=== PATIENT | female | born 1975 | race Caucasian/White ===

== ENCOUNTER 2016-08-29 16:55 | Emergency (ER) | payer MEDICARE ==
[~2016-08-29] VITALS: Ht 157.4 cm; Wt 77.1 kg
[~2016-08-29 16:55] MED LIST: ANTIVERT/2525 MG PO; BACLOFEN10 MG PO; BACTRIM DS 8001 TA1 PO; CHANTIX START M1 TAB PO; CIPROFLOXACIN500 MG PO; CLARITIN10 MG PO; CYCLOBENZAPRINE5 M3 PO; DETROL LA4 MG PO; FLONASE ALLERG9.9 ML NAS; GABAPENTIN600 MG PO; HYDROCODONE BIT1 T11 PO; KEFLEX500 MG PO; LITHIUM CARBON150 MG PO; LYRICA100 M1 PO; MEDROL DOSEPAK4 MG PO; METHOTREXATE S2.5 M1 PO; MIRALAX POWDER17 G1 PO; MOTRIN800 MG PO; OXCARBAZEPINE600 MG PO; PERCOCET 325 MG1 TA2 PO; PREDNISONE10 MG PO; ROBITUSSIN AC 110 ML PO; TRAZODONE100 MG PO; TYLENOL W/CODEI1 TA2 PO; TYSABRI20 MG/ML IV; ULTRAM50 MG PO; VENTOLIN H0.09 MG/AC INH; XANAX0.25 MG PO; ZITHROMAX Z PA250 MG PO; ZOFRAN4 MG PO; ZOLOFT100 MG PO
[2016-08-29] MEDS ORDERED: CEPHALEXIN500 M1 PO (17:32)
[2016-08-29] MEDS ORDERED: BACTRIM DS 8001 TA1 PO (17:32)
== END 2016-08-29 17:40 | disposition home or self-care (01) ==
LOC: ED 16:55
DX: S80.262A Insect bite (nonvenomous), left knee, initial encounter (principal); F17.200 Nicotine dependence, unspecified, uncomplicated; Z79.899 Other long term (current) drug therapy; W57.XXXA Bitten or stung by nonvenomous insect and other nonvenomous arthropods, initial encounter; Y93.89 Activity, other specified; Y92.9 Unspecified place or not applicable; Y99.9 Unspecified external cause status

== ENCOUNTER → 2016-08-31 | Outpatient (CLI) | payer MEDICARE ==
[~2016-08-31] MED LIST changes: +CEPHALEXIN500 M1 PO
== END ==
LOC: WOUNDCARE 07:51
DX: L97.822 Non-pressure chronic ulcer of other part of left lower leg with fat layer exposed (principal); F17.210 Nicotine dependence, cigarettes, uncomplicated

== ENCOUNTER → 2016-09-07 | Outpatient (CLI) | payer MEDICARE | LOC: WOUNDCARE 04:15 | DX: L97.822 Non-pressure chronic ulcer of other part of left lower leg with fat layer exposed (principal); F17.200 Nicotine dependence, unspecified, uncomplicated; G35 Multiple sclerosis ==

== ENCOUNTER → 2016-09-14 | Outpatient (CLI) | payer MEDICARE | END | disposition home or self-care (01) | LOC: US 13:38 | DX: S81.802A Unspecified open wound, left lower leg, initial encounter (principal); I73.9 Peripheral vascular disease, unspecified; L97.829 Non-pressure chronic ulcer of other part of left lower leg with unspecified severity; X58.XXXA Exposure to other specified factors, initial encounter; Y93.89 Activity, other specified; Y92.89 Other specified places as the place of occurrence of the external cause; Y99.8 Other external cause status ==

== ENCOUNTER → 2016-09-21 | Outpatient (CLI) | payer MEDICARE ==
--- NOTE | ~2016-09-21 | PR ---
[place], [place] PROGRESS NOTE NAME: [facility] #: [id number] UNIT #: [id number] ROOM: DOCTOR: KAMRYN WRIGHT M.D. BIRTHDATE: [birth year] DOS: 09/21/2016 CHIEF COMPLAINT: Followup of chronic ulcer of the left leg. HISTORY OF PRESENT ILLNESS: The patient is a 40-year-old female with a history of MS who has been following up in the [facility]ound Clinic for 3 weeks now. She presented to us with a nonhealing ulcer of several weeks' duration which she believes started out as an insect bite. It subsequently became necrotic and she came to us with a very thick necrotic ulcer of the left leg. We have been using TheraHoney and Bactroban to the wound. She has had a debridement and she comes in for followup without any specific complaints. There is no change in drainage. No fevers or chills. She has noticed discoloration on the proximal area of the wound which is slightly sore and is not sure how it happened. She may have fallen but does not really recall directly falling on the wound. OBJECTIVE: VITAL SIGNS: Stable. Temperature is 98.2, pulse is 68, respirations 16 and blood pressure is 118/64. SKIN: The wound is measuring 2.8 x 1 x 0.1. It looks much improved. There is good granulation tissue and there is definite epithelialization noted as well. There is still some moderate fibrin and slough present mostly in the central part of the wound. On the proximal portion, there is a discoloration that has a consistency with more of a bruise or some sort of bleeding from possibly some trauma but it does not appear to be infected. A selective debridement was done of the fibrin and slough only. There was minimal bleeding that was controlled with pressure. Post-debridement measurements are unchanged. Instrument utilized was a curette and Cetacaine spray was used for topical anesthesia. ASSESSMENT AND PLAN: Slowly healing ulcer of the left leg. It seems to be definitely improving and getting smaller on the current regimen. I would continue with TheraHoney for now and have her followup in one week. KAMRYN WRIGHT MD CM:PNTRANS [id number] KAMRYN WRIGHT M.D. 09/21/16 1448 interface
== END ==
LOC: WOUNDCARE 02:28
DX: L97.822 Non-pressure chronic ulcer of other part of left lower leg with fat layer exposed (principal)

== ENCOUNTER → 2016-09-28 | Outpatient (CLI) | payer MEDICARE ==
--- NOTE | ~2016-09-28 | PR ---
[place], [place] PROGRESS NOTE NAME: [facility] #: [id number] UNIT #: [id number] ROOM: DOCTOR: KAMRYN WRIGHT M.D. BIRTHDATE: [birth year] DOS: 09/28/2016 CHIEF COMPLAINT: Chronic ulcer of the left leg. HISTORY OF PRESENT ILLNESS: This is a 40-year-old female with a history of MS who has had a chronic ulcer of the left lower leg located below the knee that started out as a possible insect bite that was chronic and nonhealing with large amounts of necrosis. She has been coming to the Wound Clinic for 4 weeks now with steadily improving wound. She had been using Santyl and a foam dressing and feels that it was a different type of a foam being utilized now that she thought maybe was irritating the outer part of the wound, but other than that the wound is doing better and seems to be getting smaller without any other complaints noted. PHYSICAL EXAMINATION: VITAL SIGNS: Temperature is 99.1, pulse is 64, respirations 18 and blood pressure is 98/60. SKIN: The wound is definitely looking better, 2.5 x 0.5 x 0.1. There is still minimal to moderate fibrin and slough just in the center of the wound. There is large amounts of epithelialization around the periwound. There is a little bit of slight dermatitis around the periwound but it is fairly mild at this point. A selective debridement was done to remove the fibrin and slough. Instrument utilized was a curette. Cetacaine spray was used for topical anesthesia. Timeout was conducted prior to start of the procedure. There was minimal bleeding that was controlled with pressure. Post-debridement measurements were unchanged. ASSESSMENT AND PLAN: Healing chronic ulcer of the left leg. The patient is out of Santyl, we will go ahead switch to TheraHoney for now and have her utilize just a dry sterile 4 x 4 with nonallergic paper tape, have her change it every day and have her follow back up with us in 1 week. KAMRYN WRIGHT MD CM:PNPAULIE [id number] KAMRYN WRIGHT M.D. 09/28/16 1424 interface
== END | disposition home or self-care (01) ==
LOC: WOUNDCARE 03:21
DX: L97.822 Non-pressure chronic ulcer of other part of left lower leg with fat layer exposed (principal); G35 Multiple sclerosis

== ENCOUNTER 2017-11-14 23:07 | Emergency (ER) | payer MEDICARE ==
[~2017-11-14] VITALS: Ht 157.4 cm; Wt 68.0 kg
[2017-11-15] MEDS ORDERED: MEDROL DOSEPAK4 MG PO (00:40)
[2017-11-15] MEDS ORDERED: AUGMENTIN 875875 MG PO (00:40)
[2017-11-15] MEDS ORDERED: PROAIR HFA8.5 GM INH (00:40)
== END 2017-11-15 00:55 | disposition home or self-care (01) ==
LOC: ED 23:07
DX: J20.9 Acute bronchitis, unspecified (principal); H66.93 Otitis media, unspecified, bilateral; R19.7 Diarrhea, unspecified; Z79.899 Other long term (current) drug therapy

== ENCOUNTER 2018-02-10 03:42 | Emergency (ER) | payer MEDICARE ==
[~2018-02-10] VITALS: Ht 157.4 cm; Wt 63.5 kg
--- NOTE | ~2018-02-10 | EKG ---
[place], [place] ELECTROCARDIOGRAM REPORT NAME: [facility] UNIT #: [id number] ROOM: DOCTOR: EPIPHANY DRAFT REPORT BIRTHDATE: [birth year] [facility] Test Date: 2018-02-10 Test Time: 04:09:15 Pat Name: ALLISON FER[facility]NDO Department: Room: Gender: F Spectacle Truer: : 1975 Requested By: RITO DONALDSON Order Number: [id number] Reading MD: Marilou Lazaro MD Measurements Intervals [place] Rate: 124 P: 58 ND: 117 QRS: 50 QRSD: 70 T: 243 QT: 399 QTc: 574 Interpretive Statements Sinus tachycardia LAE, consider biatrial enlargement Borderline repolarization abnormality Prolonged QT interval Baseline wander in lead(s) V5 No previous ECG available for comparison Electronically Signed On 02-17-2018 10:41:29 PST by Marilou Lazaro MD CM:EKGRPT:ELECTROCARDIOGRAM REPORT [id number] RITO SURESH DRAFT REPORT RITO DONALDSON DO
[~2018-02-10 03:42] MED LIST changes: +AUGMENTIN 875875 MG PO; +PROAIR HFA8.5 GM INH
[2018-02-10 04:44] LABS: BASO % 0.2 % (0.0-1.0); HEMATOCRIT 45.8 % (37.0-47.0); HEMOGLOBIN 14.7 g/dl (12.0-16.0); LYMPH # 0.9 10*3/uL (1.3-4.4); LYMPH % 7.3 % (27.0-41.0); MEAN CELL VOLUME 92.2 fl (81.0-99.0); MEAN CORPUSCULAR HGB 29.6 pg (27.0-31.0); MEAN CORPUSCULAR HGB CONC 32.1 g/dl (33.0-37.0); MEAN PLATELET VOLUME 8.5 fl (9.6-12.3); MONO # 0.8 10*3/uL (0.1-1.0); MONO % 6.1 % (3.0-9.0); NEUT # 10.8 10*3/uL (2.3-7.9); NEUT % 85.2 % (47.0-73.0); NUCLEATED RED BLOOD CELL 0.2 % (0.0-0.0); PLATELET COUNT AUTOMATED 203 10*3/uL (130-400); RED BLOOD COUNT 4.97 10*6/uL (4.10-5.10); RED CELL DISTRI WIDTH 15.6 % (0-14.5); WHITE BLOOD COUNT 12.7 10*3/uL (4.8-10.8)
[2018-02-10 04:54] LABS: ACT PARTIAL THROMBO TIME 32.7 SECONDS (20.8-31.5); INTERNATIONAL NORM RATIO 1.6 (2.0-3.5)
[2018-02-10 05:23] LABS: ALBUMIN 3.3 gm/dl (3.1-4.5); ALKALINE PHOSPHATASE 115 U/L (45-117); BUN 4 mg/dl (7-24); CHLORIDE 114 mmol/L (98-107); CREATININE 0.79 mg/dL (0.55-1.02); SGOT/AST 10 IU/L (3-35); SGPT/ALT 14 U/L (12-78); SODIUM 145 mmol/L (136-145); TOTAL PROTEIN 7.9 gm/dL (6.4-8.2)
[2018-02-10 05:24] LABS: BETA-HCG, QUANT < 1.0 mIU/mL (1-3); TROPONIN I < 0.015 ng/ml (<0.045)
[2018-02-10] MEDS ORDERED: ZOFRAN4 MG PO (07:51)
== END 2018-02-10 06:26 | disposition home or self-care (01) ==
LOC: ED 03:42
PROVIDERS: Student in an Organized Health Care Education/Training Program
DX: R11.2 Nausea with vomiting, unspecified (principal); R10.9 Unspecified abdominal pain; Z79.2 Long term (current) use of antibiotics; Z79.899 Other long term (current) drug therapy